=== PATIENT | female | born 1970 | race Caucasian/White ===

== ENCOUNTER 2024-08-04 06:29 | Day surgery (SDC) | payer OTHER ==
[2024-08-02 16:36] VITALS: BMI 44.1
[2024-08-04 09:05] VITALS: RESP 18
[2024-08-04] MEDS ORDERED: KETOROLAC TROMETHAMINE 30 MG/1 ML VIAL ONE (10:35)
[2024-08-04] MEDS ORDERED: ceFAZolin SODIUM 1 GM VIAL ONE (10:35)
[2024-08-04] MEDS ORDERED: MIDAZOLAM HCL 2 MG/2 ML SINGLE DOSE VIAL ONE (10:35)
[2024-08-04] MEDS ORDERED: DEXAMETHASONE SOD PHOSPHATE 4 MG/1 ML VIAL ONE (10:35)
[2024-08-04] MEDS ORDERED: ONDANSETRON 4 MG/2 ML VIAL ONE (10:35)
[2024-08-04] MEDS ORDERED: DEXTROSE 5%-0.45% SALINE 1,000 ML IV SCH (11:15)
[2024-08-04] MEDS: ceFAZolin SODIUM 1 GM VIAL IVPB ONE ×2 (11:20)
[2024-08-04 14:27] VITALS: PULSE 72
[2024-08-04 14:40] VITALS: BP 130/70; TEMP 97
== END 2024-08-04 15:15 | disposition home or self-care (01) ==
LOC: JASU-SURG 06:29
PROVIDERS: ATTEND Urology
PROC: 0TF4XZZ Fragmentation in Left Kidney Pelvis, External Approach (ICD-10-PCS; principal; 2024-08-04 10:45)
DX: N20.0 Calculus of kidney (principal)

== ENCOUNTER 2024-08-08 06:39 | Inpatient (IN) | payer OTHER ==
[2024-08-08 08:02] LABS: EPI CELLS 6 /uL (0-25.1); HYALINE CASTS 1 /uL (0-3.1); URINE APPEARANCE CLEAR; URINE BACTERIA 472 /uL (0-1359); URINE BILIRUBIN NEGATIVE (NEGATIVE); URINE COLOR YELLOW; URINE GLUCOSE (UA) NEGATIVE (NEGATIVE); URINE KETONE NEGATIVE (NEGATIVE); URINE LEUK ESTERASE 2+ (NEGATIVE); URINE NITRITE NEGATIVE (NEGATIVE); URINE PROTEIN NEGATIVE (NEGATIVE); URINE RBC 46 /uL (0-23.9); URINE WBC 588 /uL (0-25.8)
[2024-08-08] MEDS ORDERED: KETOROLAC TROMETHAMINE 15 MG/ML VIAL ONE (08:21)
[2024-08-08] MEDS: KETOROLAC TROMETHAMINE 15 MG/ML VIAL IVPUSH ONE (08:28)
[2024-08-08 08:32] LABS: BASO % 0.4 % (0-2.0); EOS % 0.6 % (0-4.5); HEMATOCRIT 36.8 % (32.4-45.2); HEMOGLOBIN 12.1 GM/dL (10.7-15.3); LYMPH % 9.1 % (8-40); MCHC 32.7 g/dl (32.0-36.0); MEAN CELL VOLUME 76.2 fl (80-96); MEAN PLT VOLUME 7.1 fl (7.5-11.1); MONO % 6.7 % (3.8-10.2); NEUT % 83.2 % (42.8-82.8); PLATELET COUNT 204 10^3/uL (134-434); RBC 4.83 M/mm3 (3.60-5.2); RDW 14.2 % (11.6-15.6); WHITE BLOOD COUNT 8.8 K/mm3 (4.0-10.0)
[2024-08-08 08:49] LABS: POTASSIUM 3.5 mmol/L (3.5-5.1)
[2024-08-08 08:51] LABS: CALCIUM 8.8 mg/dL (8.5-10.1)
[2024-08-08 08:52] LABS: ALBUMIN 3.7 g/dl (3.4-5.0); BLOOD UREA NITROGEN 18.6 mg/dL (7-18); MAGNESIUM 1.7 mg/dL (1.8-2.4)
[2024-08-08 08:55] LABS: CREATININE 1.1 mg/dL (0.55-1.3)
[2024-08-08 08:57] LABS: BILIRUBIN,TOTAL 0.8 mg/dL (0.2-1); TOT PROT 7.2 g/dl (6.4-8.2)
[2024-08-08] MEDS ORDERED: HYDROmorphone HCL CARPU-JECT 2 MG/1 ML DISP.SYRIN ONE (09:31)
[2024-08-08] MEDS ORDERED: CEFTRIAXONE 1 G/50 ML PREMIX 50 ML IVPB ONE (09:32)
[2024-08-08] MEDS: HYDROmorphone HCl 2 MG/ML VIAL IVPUSH ONE (09:40)
[2024-08-08] MEDS: CEFTRIAXONE 1,000 MG in DEXTROSE 5%-WATER - 50 ML IVPB ONE (09:40)
[2024-08-08] MEDS ORDERED: ACETAMINOPHEN INJECTION 100 ML ONE (14:41)
[2024-08-08] MEDS: ACETAMINOPHEN 1000 MG/100 ML BAG IVPB ONE (14:46)
[2024-08-08 15:16] VITALS: BMI 44.7
[2024-08-08] MEDS ORDERED: ACETAMINOPHEN 1000 MG/100 ML BAG IVPB PRN (16:13)
[2024-08-08] MEDS ORDERED: ONDANSETRON 4 MG/2 ML VIAL IVPUSH PRN (16:13)
[2024-08-08] MEDS: cloNIDine-TTS 0.3 MG /24 HRS PATCH.TDWK TD SCH (17:49)
[2024-08-08] MEDS: CARVEDILOL 12.5 MG TABLET (FP) PO SCH (21:05)
[2024-08-08] MEDS: HYDROmorphone HCL CARPU-JECT 2 MG/1 ML DISP.SYRIN IVPB ONE (22:25)
[2024-08-09] MEDS ORDERED: LIDOCAINE HCL/PF 2% SDV 5ML VIAL ONE (07:22)
[2024-08-09] MEDS ORDERED: PROPOFOL 20 ML ONE (07:22)
[2024-08-09] MEDS ORDERED: MIDAZOLAM HCL 2 MG/2 ML SINGLE DOSE VIAL ONE (07:22)
[2024-08-09] MEDS ORDERED: ONDANSETRON 4 MG/2 ML VIAL IVPUSH PRN ×3 (07:32→08:08)
[2024-08-09] MEDS ORDERED: oxyCODONE HCL 5 MG TABLET PO PRN (07:32)
[2024-08-09] MEDS ORDERED: LACTATED RINGERS SOLUTION 1,000 ML IV SCH (07:45)
[2024-08-09] MEDS: ceFAZolin SODIUM 1 GM VIAL IVPB ONE (07:50)
[2024-08-09] MEDS ORDERED: ceFAZolin SODIUM 1 GM VIAL ONE (08:29)
[2024-08-09] MEDS: CEFTRIAXONE 1 G/50 ML PREMIX 50 ML IVPB SCH (09:55)
[2024-08-09] MEDS: CARVEDILOL 12.5 MG TABLET (FP) PO SCH (09:55)
[2024-08-09] MEDS: ISOSORBIDE MONONITRATE 60 MG TAB.SR.24H (FP) PO SCH (09:55)
[2024-08-09] MEDS ORDERED: CEFTRIAXONE 1 G/50 ML PREMIX 50 ML IVPB SCH (10:00)
[2024-08-09] MEDS ORDERED: ISOSORBIDE MONONITRATE 60 MG TAB.SR.24H (FP) PO SCH (10:00)
[2024-08-09] MEDS ORDERED: ROSUVASTATIN CA 20 MG TABLET PO SCH (10:00)
[2024-08-09 10:47] LABS: HEMATOCRIT 37.5 % (32.4-45.2); HEMOGLOBIN 12.4 GM/dL (10.7-15.3); MCH 25.3 pg (25.7-33.7); MCHC 33.2 g/dl (32.0-36.0); MEAN CELL VOLUME 76.2 fl (80-96); MEAN PLT VOLUME 7.3 fl (7.5-11.1); PLATELET COUNT 188 10^3/uL (134-434); RBC 4.92 M/mm3 (3.60-5.2); RDW 14.5 % (11.6-15.6); WHITE BLOOD COUNT 8.5 K/mm3 (4.0-10.0)
[2024-08-09 11:23] LABS: POTASSIUM 3.9 mmol/L (3.5-5.1)
[2024-08-09 11:28] LABS: BLOOD UREA NITROGEN 19.5 mg/dL (7-18); CALCIUM 8.6 mg/dL (8.5-10.1)
[2024-08-09 11:29] LABS: ALBUMIN 3.3 g/dl (3.4-5.0)
[2024-08-09 11:32] LABS: CREATININE 1.1 mg/dL (0.55-1.3)
[2024-08-09 11:34] LABS: BILIRUBIN,TOTAL 0.6 mg/dL (0.2-1)
[2024-08-09 12:18] LABS: ANISOCYTOSIS 0; MACROCYTOSIS 0
[2024-08-09] MEDS ORDERED: ACETAMINOPHEN 1000 MG/100 ML BAG IVPB PRN (16:03)
[2024-08-09 20:27] VITALS: RESP 18
[2024-08-09] MEDS: ROSUVASTATIN CA 20 MG TABLET PO SCH (21:04)
[2024-08-10 06:42] LABS: EPI CELLS 36 /uL (0-25.1); HYALINE CASTS 2 /uL (0-3.1); URINE APPEARANCE CLEAR; URINE BACTERIA 58 /uL (0-1359); URINE BILIRUBIN NEGATIVE (NEGATIVE); URINE COLOR YELLOW; URINE GLUCOSE (UA) NEGATIVE (NEGATIVE); URINE KETONE NEGATIVE (NEGATIVE); URINE LEUK ESTERASE 2+ (NEGATIVE); URINE NITRITE NEGATIVE (NEGATIVE); URINE PROTEIN 1+ (NEGATIVE); URINE RBC 57 /uL (0-23.9); URINE WBC 384 /uL (0-25.8)
[2024-08-10 16:20] VITALS: BP 138/80; PULSE 59; TEMP 97.9
[2024-08-15] MEDS ORDERED: cloNIDine-TTS 0.3 MG /24 HRS PATCH.TDWK TD SCH (17:00)
== END 2024-08-10 19:23 | disposition home or self-care (01) | DRG 466 ==
LOC: JER 06:39 → JERBED 11:34 → J5S 14:51 → OBSVTOIN 16:11
PROVIDERS: ADMIT Internal Medicine; ATTEND Internal Medicine
PROC: BT1FZZZ Fluoroscopy of Left Kidney, Ureter and Bladder (ICD-10-PCS; 2024-08-09)
PROC: 0T9B70Z Drainage of Bladder with Drainage Device, Via Natural or Artificial Opening (ICD-10-PCS; 2024-08-09)
PROC: 0T778DZ Dilation of Left Ureter with Intraluminal Device, Via Natural or Artificial Opening Endoscopic (ICD-10-PCS; principal; 2024-08-09 07:30)
DX: N99.89 Other postprocedural complications and disorders of genitourinary system (principal); N13.6 Pyonephrosis; I10 Essential (primary) hypertension; N20.1 Calculus of ureter; E66.01 Morbid (severe) obesity due to excess calories
CPT/HCPCS: 36415; 74176-TC; 76000-TC-FY; 76775-TC; 76937; 80053; 81003; 83735; 84703; 85025; 87086; 87186; 94760; 99285-25; C2617; G0378; J0131